=== PATIENT | male | born 1975 | race Caucasian/White ===

== ENCOUNTER 2024-09-28 18:43 | Emergency (ER) | payer OTHER, SELFPAY ==
--- OUTSIDE RECORDS SUMMARY | 2024-09-28 18:45 | XMS_ITS | Clinical Summary ---
Author Organization [facility] Address [address] [address] Phone Care Team Providers Care Glass Forming Engineer Name Role Phone Choice, No Pcp-Patient Primary Care Provider Kimber vailable Allergies Active Allergy Reactions Criticality Noted Date Comments Oxycodone-Acetaminophen Hives 06/27/2018 Trazodone Other Low 08/13/2023 Priapism Medications No known medications Active Problems No known active problems Encounters Date Type Department Care Team Description 07/08/2024 5:30 PM DIRECTOR OF MARKETING [employer] Ancillary Procedure [facility] [address] [facility] [address] [place] [id number] 07/08/2024 3:42 PM DIRECTOR OF MARKETING [employer] - 07/08/2024 8:54 PM DIRECTOR OF MARKETING [employer] Emergency [facility] [address] [place] [address] Carol Ann Lei, [place] Multiple subsegmental pulmonary emboli without acute cor pulmonale (HCC) (Primary Dx); SOB (shortness of breath); Palpitation Discharge Disposition: Home and/or Self Care 07/08/2024 Travel from Last 3 Months Social History Tobacco Use Types Packs/Day Years Used Date Smoking Tobacco: Never Assessed Overall Financial Resource Strain (CARDIA) Answe r Date Recorded How hard is it for you to pa y for the very basics like food, housing, medical care, and heating? Very hard 08/13/2023 Hunger Vital Sign Answer Date Recorded Within the past 12 months, y ou worried that your food would run out before you got the money to buy more. Often true 08/13/20 23 Within the past 12 months, t he food you bought just didn't last and you didn't have money to get more. Often true 08/13/2023 PRAPARE - Transportation Answer Date Re corded In the past 12 months, has l ack of transportation kept you from medical appointments or from getting medications? No 07/18 In the past 12 months, has l ack of transportation kept you from meetings, work, or from getting things needed for daily living? No 08/13/2023 IP Housing Domain Answer Date Record ed Retired - What is your dominguez g situation today? I do not have a steady place to live (I am temporarily staying with others, in a hotel, in a mcc, living outside on the street, on a beach, in a car, abondoned building, bus or train station, or in a park) 08/13/2023 IP Custom Utilities ([employer]) Answer Date Recorded How hard is it for you to pa y for the very basics like food, housing, medical care, and heating? 1 08/13/2023 IP Custom IPV Answer Date Recorded Do you feel UNSAFE in any of your personal relationships with your family members or any other acquaintances? No 2023 Sex and Gender Information Value Date Recorded Sex Assigned at Not on file Legal Sex Male 1:16 PM DIRECTOR OF MARK[employer]ING [employer] Gender Identity Not on file Sexual Orientation Not on file Last Filed Vital Signs Vital Sign Reading Time Taken Comments Blood Pressure 139/102 07/08/2024 8:00 PM DIRECTOR OF [employer] Pulse 57 07/08/2024 8:15 PM DIRECTOR OF [employer] Temperature 36.5 C (97.7 F) 07/08/2024 3:39 PM DIRECTOR OF MARK[employer]ING [employer] Respiratory Rate 18 07/08/2024 8:00 PM DIRECTOR OF MARK[employer]ING [employer] Oxygen Saturation 95% 07/08/2024 8:15 PM DIRECTOR OF MARK[employer]ING [employer] Inhaled Oxygen Concentration - - Weight 99.8 kg (220 lb) 07/08/2024 3:39 PM DIRECTOR OF MARK[employer]ING [employer] Height 180.3 cm (5' 11) 07/08/2024 3:39 PM DIRECTOR OF [employer] Body Mass Index 30.68 07/08/2024 3:39 PM DIRECTOR OF MARK[employer]ING [employer] Plan of Treatment Health Maintenance Due Date Last Done Comments CT Colonography 1976 Cologuard 1976 Colonoscopy 1976 Colorectal Cancer Screening 1976 FIT/FOBT 1976 Sigmoidoscopy 1976 Hepatitis B Vaccine (Standin g Order) (1 of 3 - 19+ 3-dose series) 1995 PERTUSSIS (Standing Order) 1995 TETANUS (Standing Order) 1995 COVID-19 Vaccine (2023-2 5 season) 2024 Influenza Vaccine Seasonal (Standing Order) (#1) 2024 HPV Vaccine (Standing Order) Aged Out No longer eligible based on patient's age to complete this topic Pneumococcal/PCV20 Vaccine: Pediatrics (2-5 yrs) and At-Risk Patients (6-49 yrs) (Standing Order) Aged Out No longer eligible b ased on patient's age to complete this topic Procedures Procedure Name Priority Date/Time Associated Diagnosis Comments CT ANGIO CHEST PE STAT 07/08/2024 6:1 5 PM DIRECTOR OF MARK[employer]ING [employer] NTPRO BNP Add on 07/08/2024 3:51 PM DIRECTOR OF [employer] TROPONIN I ED 07/08/2024 3:51 PM DIRECTOR OF MARK[employer]ING [employer] D-DIMER Add on 07/08/2024 3:51 PM DIRECTOR OF [employer] BASIC METABOLIC PANEL Add on 07/08/2024 3:51 PM DIRECTOR OF [employer] HEMOGRAM/DIFF Add on 07/08/2024 3:51 PM DIRECTOR OF [employer] HOLD MUELLER TUBE ED 07/08/2024 3:51 PM DIRECTOR OF MARK[employer]ING [employer] HOLD NA CITRATE ED 07/08/2024 3:51 PM DIRECTOR OF MARK[employer]ING [employer] HOLD LI HEPARIN ED 07/08/2024 3:51 PM DIRECTOR OF MARK[employer]ING [employer] HOLD EDTA ED 07/08/2024 3:51 PM DIRECTOR OF MARK[employer]ING [employer] RAINBOW DRAW ED 07/08/2024 3:51 PM DIRECTOR OF [employer] EKG 12-LEAD STAT 07/08/2024 3:44 PM DIRECTOR OF MARK[employer]ING [employer] from Last 3 Months Results * CT ANGIO CHEST PE (07/08/2024 6:15 PM DIRECTOR OF MARK[employer]ING [employer]) Anatomical Region Laterality Modality Chest, Lung Computed Tomogra phy 07/08/2024 6:18 PM DIRECTOR OF [employer]ING [employer] Narrative 07/08/2024 7:26 PM DIRECTOR OF MARK[employer]ING [employer] For Patients: As a result of the Cures Act, medical imaging exams and procedure reports are released immediately into your electronic medical record. You may view this report before your referring provider. If you have questions, please contact your health care provider. Indication: Suspect PE, elevated d dimer Technique: CTA chest, pulmonary embolism protocol, utilizing 100 mL Omnipaque 350 Comparison: CTA chest on April 19, 2024 Findings: No thyroid nodules. No pathologically enlarged lymph nodes throughout the thorax. The heart is normal in size. No CT evidence of right heart strain. No pericardial effusion. Thoracic aorta and pulmonary artery are normal in caliber. Pulmonary emboli in the distal right main pulmonary artery with extension into the segmental and subsegmental arteries of the right upper, middle, and lower lobes. Pulmonary emboli in the segmental and subsegmental pulmonary arteries of the left lower lobe. Resolution of previously visualized dense consolidative opacity seen in the left upper lobe with some regions of residual scarring/atelectasis. No new focal airspace consolidation. Resolution of previously visualized small left-sided pleural effusion. No pneumothorax. Trace bibasilar and dependent atelectatic changes. There are few solid sub 6 millimeter pulmonary nodules bilaterally, unchanged compared to prior exam. The airways are clear. The visualized upper abdomen is unremarkable The soft tissues and osseous structures are unremarkable. Impression: 1. Bilateral pulmonary emboli with clot burden slightly increased compared to prior examination, but no CT evidence of right heart strain. 2. Resolution of previously visualized dense consolidative opacity seen in the left upper lobe and resolution of previously visualized left pleural effusion. Findings were discussed with Dr. Lei at 7:25 p.m. on 07/08/2024. Please note that all CT scans at this facility use dose modulation, iterative reconstruction, and/or weight-based dosing when appropriate to reduce radiation dose to as low as reasonably achievable. Dictated by Reed Cormier MD @ 07/08/2024 7:26:12 PM Electronically Signed Procedure Note Reed Corimer MD - 07/08/2024 For Patients: As a result of the Cures Act, medical imagingexams and procedure reports are released immediately into your electronicmedical record. You may view this report before your referring provider. If youhave questions, please contact your health care provider. Indication: Suspect PE, elevated d dimer Technique: CTA chest, pulmonary embolism protocol, utilizing 100 mL Omnipaque 350 Comparison: CTA chest on April 19, 2024 Findings: No thyroid nodules. No pathologically enlarged lymph nodes throughoutthe thorax. The heart is normal in size. No CT evidence of right heart strain. No pericardial effusion. Thoracic aorta and pulmonary artery are normal incaliber. Pulmonary emboli in the distal right main pulmonary artery with extensioninto the segmental and subsegmental arteries of the right upper, middle, andlower lobes. Pulmonary emboli in the segmental and subsegmental pulmonaryarteries of the left lower lobe. Resolution of previously visualized dense consolidative opacity seen inthe left upper lobe with some regions of residual scarring/atelectasis. No newfocal airspace consolidation. Resolution of previously visualized smallleft-sided pleural effusion. No pneumothorax. Trace bibasilar and dependentatelectatic changes. There are few solid sub 6 millimeter pulmonary nodulesbilaterally, unchanged compared to prior exam. The airways are clear. The visualized upper abdomen is unremarkable The soft tissues and osseous structures are unremarkable. Impression: 1. Bilateral pulmonary emboli with clot burden slightly increased comparedto prior examination, but no CT evidence of right heart strain. 2. Resolution of previously visualized dense consolidative opacity seen inthe left upper lobe and resolution of previously visualized left pleuraleffusion. Findings were discussed with Dr. Lei at 7:25 p.m. on 07/08/2024. Please note that all CT scans at this facility use dose modulation,iterative reconstruction, and/or weight-based dosing when appropriate to reduceradiation dose to as low as reasonably achievable. Dictated by Reed Cormier MD @ 07/08/2024 7:26:12 PM Electronically Signed us Carol Ann Lei PA-C EC CT ORDERABLES Final Res ult * HOLD MUELLER TUBE (07/08/2024 3:51 PM DIRECTOR OF MARK[employer]ING [employer]) Blood BLOOD SPECIMEN / Unknown Venipuncture / Unknown 07/08/2024 3:51 PM DIRECTOR OF MARK[employer]ING [employer] 07/08/2024 3:57 PM DIRECTOR OF MARK[employer]ING [employer] us Danica Mckee MD EC CHEMISTRY ORDERABLES Fin al Result Performing Organization Address [facility] Phone Number [facility] [address] [place] [address] * NTPRO BNP (07/08/2024 3:51 PM DIRECTOR OF MARKETING [employer]) NT-PRO BNP 65 <125 pg/mL 07/08/2024 6:47 PM DIRECTOR OF MARK[employer]ING [employer] [facility] Blood BLOOD SPECIMEN / Unknown Venipuncture / Unknown 07/08/2024 3:51 PM DIRECTOR OF [employer] 07/08/2024 3:57 PM DIRECTOR OF MARK[employer]ING [employer] Narrative [facility] - 07/08/2024 6:47 PM DIRECTOR OF MARKETING [employer] The decision thresholds: <75 years- 125 pg/mL >75 years- 450 pg/mL Clinical correlations for the NYHA functional classes at the 95th percentile: NYHA I: 3410 NYHA II: 6567 NYHA III: 48424 us Carol Ann Lei PA-C EC LAB SEND OUT ORDERABLES Final Result Performing Organization Address [facility] Phone Number [facility] [address] [place] [address] * HOLD LI HEPARIN (07/08/2024 3:51 PM DIRECTOR OF MARK[employer]ING [employer]) Blood BLOOD SPECIMEN / Unknown Venipuncture / Unknown 07/08/2024 3:51 PM DIRECTOR OF MARK[employer]ING [employer] 07/08/2024 3:57 PM DIRECTOR OF MARK[employer]ING [employer] us Danica Mckee MD EC CHEMISTRY ORDERABLES Fin al Result Performing Organization Address [facility] Phone Number [facility] [address] [place] [address] * HOLD NA CITRATE (07/08/2024 3:51 PM DIRECTOR OF MARKETING [employer]) Blood BLOOD SPECIMEN / Unknown Venipuncture / Unknown 07/08/2024 3:51 PM DIRECTOR OF MARK[employer]ING [employer] 07/08/2024 3:57 PM DIRECTOR OF MARK[employer]ING [employer] us Danica Mckee MD EC HEMATOLOGY ORDERABLES Fi nal Result [facility] [address] [place] [address], [facility] [phone] * HOLD PURPLE TUBE (07/08/2024 3:51 PM DIRECTOR OF MARK[employer]ING [employer]) Blood BLOOD SPECIMEN / Unknown Venipuncture / Unknown 07/08/2024 3:51 PM DIRECTOR OF MARK[employer] 07/08/2024 3:57 PM DIRECTOR OF MARK[employer] Danica Mckee MD EC HEMATOLOGY ORDERABLES Fi nal Result [facility] [address] [place] [id number] [phone] * BASIC METABOLIC PANEL (07/08/2024 3:51 PM DIRECTOR OF MARK[employer]) Sodium 139 135 - 144 mmol/L 07/08/2024 4:34 PM DIRECTOR OF MARK[employer] [facility] Potassium 4.3 3.4 - 5.1 mmol/L 07/08/2024 4:34 PM DIRECTOR OF MARK[employer] [facility] Chloride 102 98 - 107 mmol/L 07/08/2024 4:34 PM DIRECTOR OF MARK[employer] [facility] Carbon Dioxide 25 22 - 30 mmol/L 07/08/2024 4:34 PM DIRECTOR OF MARK[employer] [facility] Calcium 10.3 8.6 - 10.3 mg/dL 07/08/2024 4:34 PM DIRECTOR OF MARK[employer] [facility] Glucose 80 74 - 100 mg/dL 07/08/2024 4:34 PM DIRECTOR OF MARK[employer] [facility] Blood Urea nitrogen 13 9 - 20 mg/dL 07/08/2024 4:34 PM DIRECTOR OF MARK[employer] [facility] Creatinine 0.84 0.66 - 1.25 mg/dL 07/08/2024 4:34 PM DIRECTOR OF MARK[employer] [facility] Anion Gap 12 5 - 15 mmol/L 07/08/2024 4:34 PM DIRECTOR OF MARK[employer] [facility] Glomerular Filtration Rate >60 >60 mL/min/1.7 3 m*2 07/08/2024 4:34 PM DIRECTOR OF MARK[employer]ING [employer] [facility] Comment:This calculation use s CKD-EPI 2020 equation; it has not been validated in women. Blood BLOOD SPECIMEN / Unknown Venipuncture / Unknown 07/08/2024 3:51 PM DIRECTOR OF [employer] 07/08/2024 3:57 PM DIRECTOR OF [employer] Carol Ann Lei PA-C EC CHEMISTRY ORDERABLES Fi nal Result Performing Organization Address [facility] Phone Number [facility] [address] [place] [address] * TROPONIN I (07/08/2024 3:51 PM DIRECTOR OF MARK[employer]ING [employer]) [facility] High Sensitivity Troponin I 5.8 0.0 - 76.2 pg/mL 07/08/2024 5:34 PM DIRECTOR OF [employer] [facility] Blood BLOOD SPECIMEN / Unknown Venipuncture / Unknown 07/08/2024 3:51 PM DIRECTOR [employer] 07/08/2024 5:00 PM DIRECTOR OF MARK[employer]ING [employer] Narrative [facility] - 07/08/2024 5:34 PM DIRECTOR OF [employer] The 99th percentile URL (upper reference limit) for High Sensitivity Troponin I is as follows: Female: 51.4 pg/mL Male: 76.2 pg/mL Gender Neutral: 60.4 pg/mL Carol Ann Lei PA-C EC CHEMISTRY ORDERABLES Fi nal Result Performing Organization Address [facility] Phone Number [facility] [address] [place] [address] * (ABNORMAL) HEMOGRAM/DIFFERENTIAL (07/08/2024 3:51 PM DIRECTOR OF MARK[employer]ING [employer]) [facility] WBC 9.7 4.0 - 11.0 10*3/uL 07/08/2024 4:33 PM DIRECTOR OF MARK[employer]ING [employer] [facility] RBC 5.57 4.40 - 6.00 10*6/uL 07/08/2024 4:33 PM DIRECTOR OF MARK[employer] [facility] HGB 15.3 13.0 - 18.0 g/dl 07/08/2024 4:33 PM DIRECTOR OF MARK[employer]ING [employer] [facility] HCT 47.0 40.0 - 52.0 % 07/08/2024 4:33 PM DIRECTOR OF MARK[employer] [facility] MCV 84.4 80 - 96 fL 07/08/2024 4:33 PM DIRECTOR OF MARK[employer] [facility] MCH 27.5 27.0 - 34.0 pg 07/08/2024 4:33 PM DIRECTOR OF MARK[employer] [facility] MCHC 32.6 32 - 36 g/dl 07/08/2024 4:33 PM DIRECTOR OF MARK[employer] [facility] PLT 305 150 - 420 10*3/uL 07/08/2024 4:33 PM DIRECTOR OF MARK[employer] [facility] Neutrophils Absolute 4.41 2.10 - 7.50 10*3/uL 07/08/2024 4:33 PM DIRECTOR OF MARK[employer] [facility] Lymphocytes Absolute 3.93 0.76 - 4.00 10*3/uL 07/08/2024 4:33 PM DIRECTOR OF MARK[employer] [facility] Monocytes Absolute 0.96(H) 0.00 - 0.90 10*3/uL 07/08/2024 4:33 PM DIRECTOR OF MARK[employer] [facility] Eosinophils Absolute 0.28 0.04 - 0.54 10*3/uL 07/08/2024 4:33 PM DIRECTOR OF MARK[employer] [facility] Basophils Absolute 0.05 0.00 - 0.20 10*3/uL 07/08/2024 4:33 PM DIRECTOR OF MARK[employer] [facility] RDW-SD 52.4(H) 35.1 - 43.9 fL 07/08/2024 4:33 PM DIRECTOR OF [employer] [facility] RDW-CV 16.8(H) 11.6 - 14.4 % 07/08/2024 4:33 PM DIRECTOR OF MARK[employer] [facility] Immature Granulocytes Absolute 0.06 0.00 - 0.10 10*3/uL 07/08/2024 4:33 PM DIRECTOR OF MARK[employer] [facility] Blood BLOOD SPECIMEN / Unknown Venipuncture / Unknown 07/08/2024 3:51 PM DIRECTOR OF [employer] 07/08/2024 3:57 PM DIRECTOR OF [employer] us Carol Ann Lei PA-C EC HEMATOLOGY ORDERABLES F inal Result [facility] [address] [place] [address] * (ABNORMAL) D-DIMER (07/08/2024 3:51 PM DIRECTOR OF [employer]) D-Dimer 4.30(H) 0.22 - 0.50 mg/L 07/08/2024 4:33 PM DIRECTOR OF MARK[employer]ING [employer] [facility] Blood BLOOD SPECIMEN / Unknown Venipuncture / Unknown 07/08/2024 3:51 PM DIRECTOR OF MARK[employer] 07/08/2024 3:57 PM DIRECTOR OF MARK[employer]ING [employer] Narrative [facility] - 07/08/2024 4:33 PM DIRECTOR OF MARK[employer]ING [employer] Result is mg/L FEU (Fibrinogen Equivalent Units) D-Dimer is elevated in DVT,PE, and DIC, however, D-Dimer in NOT specific for DVT and PE and therefore, cannot be applied as a sole confirmatory marker. D-Dimer should be used as an aide in diagnosis. An [facility] laboratory study showed that the cutoff value of 0.5 mg/L FEU has a 100% negative predictive value us Carol Ann Lei PA-C EC HEMATOLOGY ORDERABLES F inal Result [address] [phone] * EKG 12-LEAD (07/08/2024 3:44 PM DIRECTOR OF MARK[employer]ING [employer]) [facility] Ventricular Rate 82 BPM RMCMUSE Atrial Rate 82 BPM [facility] P-R Interval 152 ms RMCMUSE QRS Duration 104 ms RMCMUSE QT 350 ms RMCMUSE QTc 408 ms RMCMUSE P [place] 39 degrees RMCMUSE R [place] 15 degrees RMCMUSE T [place] 47 degrees RMCMUSE 07/08/2024 3:44 PM DIRECTOR OF [employer] 07/11/2024 2:03 PM DIRECTOR OF [employer] Narrative [facility] - 07/11/2024 2:03 PM DIRECTOR OF [employer] Confirming Manuel Madrid Normal sinus rhythm Normal ECG When compared with ECG of 19-APR-2024 11:11, No significant change was found Procedure Note Santosh Madrid MD - 07/11/2024 Confirming Manuel Madrid Normal sinus rhythm Normal ECG When compared with ECG of 19-APR-2024 11:11, No significant change was found us Danica Mckee MD IP ECG ORDERABLES Final Res ult [facility]CMUSE from Last 3 Months Insurance [facility] Care Teams Glass Forming Engineer Relationship Specialty Start Date End Date Choice, No Pcp-Patient PCP - General 04/19/24
--- OUTSIDE RECORDS SUMMARY | 2024-09-28 18:45 | XMS_ITS | Clinical Summary ---
Author Organization [facility] Address [address] [place] [address] Care Team Providers Care Programmer Or Analyst Name Role Phone No Primary/Referring, Phy Primary Care Provider Unavailable Source Comments You are receiving this document as you are listed as the primary care provider,follow-up provider, or the patient has been referred to you for consultation.This is in compliance with the Medicare andMedicaid EHR Incentive Program,which states Providers who transition their patient to another setting of careor provider of care or refers their patient to another provider of care shouldprovide summary care record for each transition of care or referral. [place] Allergies Active Allergy Reactions Criticality Noted Date Comments Oxycodone-Acetaminophen 10/18/2008 PN: LW Reaction: Vomiting Trazodone Unknown 08/14/2023 Medications * This document contains information received from the source organization and may not represent a complete record from that organization. No known medications Active Problems Problem Noted Date Diagnosed Date Major depressive disorder, r ecurrent severe without psychotic features 08/14/2023 MADELEINE (generalized anxiety disorder) 08/14/2023 Methamphetamine use disorder, severe, dependence 08/14/2023 Nicotine dependence, other tobacco product, with withdrawal 08/14/2023 Social History Tobacco Use Types Packs/Day Years Used Date Smoking Tobacco: Every Day Cigarettes 1 30 Smokeless Tobacco: Never Tobacco Cessation:Ready to Q uit: Not Asked; Counseling Given: Not Answered Hunger Vital Sign Answer Date Recorded Within the past 12 months, y ou worried that your food would run out before you got the money to buy more. Often true 08/14/20 23 Within the past 12 months, t he food you bought just didn't last and you didn't have money to get more. Often true 08/14/2023 Sex and Gender Information Value Date Recorded Sex Assigned at Not on file Legal Sex Male 9:14 PM CDT Gender Identity Not on file Sexual Orientation Not on file Last Filed Vital Signs Vital Sign Reading Time Taken Comments Blood Pressure 134/98 08/22/2023 7:31 AM [employer] Pulse 69 08/22/2023 7:31 AM [employer] Temperature 36.6 C (97.9 F) 08/22/2023 7:31 AM [employer] Respiratory Rate 18 08/22/2023 7:31 AM [employer] Oxygen Saturation 98% 08/22/2023 7:31 AM [employer] Inhaled Oxygen Concentration - - Weight 88.1 kg (194 lb 3.2 oz) 08/21/2023 7:52 A M [employer] Height 180.3 cm (5' 10.98) 08/18/2023 3:[address] Body Mass Index 27.1 08/18/2023 3:21 PM [employer] Plan of Treatment Health Maintenance Due Date Last Done Comments Colon Cancer Screening Plan Due 1976 Hep C Screening (Preventive Services) 1976 Pneumococcal (1 - PCV) 1982 HIV Screening (Preventive Services) 1992 Adult Preventive Visit 1994 DTaP/Tdap/Td (1 - Tdap) 1995 HepB (1) 1995 Cholesterol 2011 COVID-19 Vaccine (1 - 2023-2 5 season) 2024 Influenza (#1) 2024 Zoster/Shingles (1 of 2) 2026 HepA Aged Out No longer eligi ble based on patient's age to complete this topic Hib Aged Out No longer eligi ble based on patient's age to complete this topic IPV (Polio) Aged Out No longer eligi ble based on patient's age to complete this topic MCV4 Aged Out No longer eligi ble based on patient's age to complete this topic Insurance HOMELESS 08/14/2023 [facility] [id number] [address] [place] [id number] HOMELESS 08/14/[address] [id number] [facility] Advance Directives * Full Code (Latest Code Status on File) Date Activated Date Inactivated Comments 08/14/2023 4:34 AM 08/22/2023 10:23 AM Care Teams Programmer Or Analyst Relationship Specialty Start Date End Date No Primary/Referring, Phy PCP - General 08/14/23
[2024-09-28 18:48] VITALS: BP 193/146; PULSE 88; RESP 22; TEMP 36.1; O2SAT 98
--- NOTE | 2024-09-28 18:58 | ED.GENADULT ---
HPI - General Adult General Date Seen: 09/28/24 Chief complaint: Extremity Pain/Injury, Upper Stated complaint: Hurt his hand at work - R Time Seen by Provider: 09/28/24 18:47 History of Present Illness HPI narrative: Pleasant 49-year-old male presenting to the ER today with a work related injury to his right hand. 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 Had been moving boxes for over an hour when he started to have pain in his Records indicate he was seen in the urgent care 07/29/2024 for pain in his right hand. Pain occurred while he was at work bed day after he struck the back of his hand on a forklift. X-ray was negative for fracture. He was put on Keflex for possible infection. Records also indicate that he was on Eliquis for history of PEs in the past. Patient is able to tell me that he has been hospitalized several times over the past year for pneumonia and apparently had blood clots in his lungs found on a CT scan after his hospitalization. He has been on Eliquis. The he also has all long history of carpal tunnel affecting his wrists. 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 He stopped working construction and got better so he never did have surgery. 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 Patient says that he recalls being in the urgent care a month or 2 ago because of significant pain and swelling in his right hand (actually worse than it is today). He went to the doctor and had lab tests and was put on antibiotics. He says it got better after for 5 days. Because it got better he never did follow up with Orthopedics. He was doing a lot a work today at the post office lifting some bins and using his hands. After about an hour he started 6. Conn pain in the wrist and right hand. He says most of his pain is actually on the ulnar border of the wrist and radiates from there upper forearm all the way to his elbow and sometimes all the way to his shoulder. He has been trying to put pressure on the ulnar border of his wrist because when he does that it hurts last. He also feels like his hand hurts less if he keeps it hanging down so he has been keeping a dangle for a couple of hours. He has developed increasing swelling in the hand this afternoon as well. He and I agree there is also some redness there. He has not had any fever. He has no known blunt trauma or injury. No fall. He has not had any swelling or redness more proximally in the arm. He does have a history of pulmonary emboli which she says were triggered after he was in the hospital for pneumonia. He has never had a DVT in his upper extremity. Related Data Home Medications ?Medication ?Instructions ?Recorded ?Confirmed apixaban 5 mg tablet (Eliquis) mg PO 07/29/24 08/29/24 Previous Rx's ?Medication ?Instructions ?Recorded cephalexin 500 mg capsule 500 mg PO QID #28 caps 09/28/24 Allergies Allergy/AdvReac Type Severity Reaction Status Date / Time acetaminophen (From Percocet) Allergy Intermediate hives Verified 08/29/24 14:58 oxycodone (From Percocet) Allergy Intermediate hives Verified 08/29/24 14:58 Exam Narrative: Exam Narrative: Constitutional: Appears well-developed and well-nourished. Alert. . As I enter the room he is sitting up in his bedside chair leaning over with his head on the bedside table. He had his right arm hanging dependent between his legs. He is resting his head on the table and will look up at me. He is talking rapidly, but is not able to give a cogent history about when his arm started hurting today or exactly which part of his on his hurting. It is clear that he is uncomfortable. We discussed ordering pain meds for him, but he was somewhat agitated by that. Ultimately I was able to determine that he has an intolerance to oxycodone but has had other pain meds in the past without reaction. He agreed to do a shot of Dilaudid. Speech is somewhat pressured, unclear if he is anxious, or simply acting this way due to pain.. Upon recheck after Dilaudid, he is able to sit up. He is icing his volar wrist. He says it is feeling somewhat better now. HENT: Head: Atraumatic. Nose: Nose normal. Mouth/Throat: Oral mucosa is clear and moist. no trismus. Eyes: Conjunctivae normal. EOM normal. Pupils equal, round, and reactive to light. No scleral icterus. Neck: Normal range of motion. Neck supple. No tracheal deviation present. No visible JVD, but he is sitting up. Cardiovascular: Normal rate, regular rhythm. No gallop. No friction rub. No murmur heard. Symmetric radial artery pulses . Normal capillary refill in the distal fingers of the right hand. Not able to complete Isaac's test due to discomfort. Pulmonary/Chest: Effort normal. No stridor. No respiratory distress. Musculoskeletal: RUE: Clavicle normal. Shoulder and deltoid nontender. No bony deformity. Biceps and triceps nontender. Humeral shaft nontender. Normal brachial pulse. No deformity of the elbow. He is able to fully extend and flex to about 90?. He is tender over the medial epicondyle and the canal containing the ulnar nerve on the medial elbow. When I palpate there he does have an increase in pain and numbness in his hand. Volar and dorsal forearm without swelling or tenderness. Pronation/supination limited by wrist and hand pain. The patient has swelling on the dorsal and volar wrist. He is very tender diffusely on the wrist without any point tenderness or deformity. Seems to be most tender on the ulnar border. He is concerned that he has something in his carpal tunnel (but does not have pain specifically localizing to the volar wrist or hand). Inspection of the hand reveals significant edema on the dorsum of the hand spreading to all 5 fingers. Perhaps slightly red but not obviously erythematous. No definite warmth to palpation. No definite fluctuance. I do not see any abrasions or open wounds to suggest a fight bite . Range of motion in the wrist is limited by pain. He has limited flexion extension of his fingers because it makes his wrist pain flare up. LUE: Normal range of motion. No tenderness. No deformity RLE: Normal range of motion. No edema. No tenderness. No deformity LLE: Normal range of motion. No edema. No tenderness. No deformity Lymph: No ascending lymphangitis.. Neurological: Alert and oriented to person, place, and time. Normal strength. CN II-VII intact. No sensory deficit. GCS eye subscore is 4. GCS verbal subscore is 5. GCS motor subscore is 6. Normal coordination Patient complaining of subjective paresthesias in the right median and ulnar nerve distributions but normal sensation in the radial nerve. Skin: Skin is warm and dry. No rash noted. No pallor. Normal capillary refill. Psychiatric: Normal mood. Anxious. Const: Vital Signs, click to edit/add: Vital Signs - 24 hr 09/28/24 18:48 Temperature 97 F L Pulse Rate [Pulse Oximeter] 88 Respiratory Rate 22 Blood Pressure [Le ft Upper Arm] 193/146 H Pulse Oximetry 98 Oxygen Delivery Me thod Room Air Course Vital Signs Vital signs: Initial Vital Signs Temperature 97 F L 09/28/24 18:48 Temperature Source Temporal Artery Scan 09/28/24 18:48 Pulse Rate 88 09/28/24 18:48 Respiratory Rate 22 09/28/24 18:48 Blood Pressure 193/146 H 09/28/24 18:48 Blood Pressure Mean 161 H 09/28/24 18:48 Blood Pressure Position Sitting 09/28/24 18:48 Pulse Oximetry 98 09/28/24 18:48 Oxygen Delivery Method Room Air 09/28/24 18:48 Vital Signs Temperature 97 F L 09/28/24 18:48 Pulse Rate 88 09/28/24 18:48 Respiratory Rate 22 09/28/24 18:48 Blood Pressure 193/146 H 09/28/24 18:48 Pulse Oximetry 98 09/28/24 18:48 Oxygen Delivery Method Room Air 09/28/24 18:48 Temperature 97 F L 09/28/24 18:48 Pulse Rate 88 09/28/24 18:48 Respiratory Rate 22 09/28/24 18:48 Blood Pressure 193/146 H 09/28/24 18:48 Pulse Oximetry 98 09/28/24 18:48 Oxygen Delivery Method Room Air 09/28/24 18:48 Medications Administered Medications: Generic Name Dose Route Start Last Admin Trade Name Freq PRN Reason Stop Dose Admin Cephalexin HCl 500 mg 09/28/24 20:19 09/28/24 20:25 Cephalexin 500 Mg Capsule PO 09/28/24 20:20 500 mg ONCE ONE Administration Discontinued Medications Generic Name Dose Route Start Last Admin Trade Name Freq PRN Reason Stop Dose Admin Hydromorphone HCl 1 mg 09/28/24 19:04 09/28/24 19:14 Hydromorphone 0.5 Mg/0.5 Ml Inj IM 09/28/24 19:05 1 mg ONCE ONE Administration Ondansetron HCl 4 mg 09/28/24 19:04 09/28/24 19:15 Ondansetron Odt 4 Mg Tab PO 09/28/24 19:05 4 mg ONCE ONE Administration Medical Decision Making MDM Narrative Medical decision making narrative: 49-year-old male presenting to the ER today with acute onset of right wrist pain had and swelling as well as swelling to the dorsum of his right hand. He says he he has a long history of wrist tendon problems and carpal tunnel and he feels that he made those problems flare up while lifting boxes and bins at work this afternoon. My differential is much broader. Consider fracture given the amount of swelling and pain. However he denies any recent fall or injury. Or and I discussed x-rays and decided to hold off, given low likelihood for fracture. With the amount of swelling and pain he is having on concerned about wrist joint pathology such as gout or septic arthritis. He is refusing any lab draw to check inflammatory markers and refusing any needles to try to do arthrocentesis in the wrist. Also consider cellulitis in the hand. Again, he is declining lab draws to check inflammatory markers. He has no history of trauma to the wrist or cut to suggest a fight bite.Her hand is swollen but I do not detect any definite fluctuance on palpation. He has no fever. At this point, I think we are obligated to start him on antibiotics, even though we do not have a complete workup to look for infection . He is declining needles or IV. First dose of cephalexin given here in the ER tonight. He apparently did have a similar episode of swelling and pain in his hand 2 months ago in July that came and went after about for 5 days. He had been placed on antibiotics at that time as well. He also has a history of pulmonary emboli and is currently on Eliquis. Consider an acute DVT of the right upper extremity. However given onset of the pain and swelling at work this afternoon, that seems less likely. Patient does not want an ultrasound of his arm today. Patient believes he either has carpal tunnel syndrome (which I do not think would present with this degree of pain and swelling in the wrist and hand) or something wrong with his flexor tendons. He is concerned that he tore them at work today. He would like to have an MRI of his wrist and hand checked the tendons. We discussed that this is, unfortunately, not available here in the ER. He verbalizes understanding. He would be willing to accept a referral to Orthopedics for further workup. In terms of outpatient management he says he already has splints at home. He is requesting an Rajiv wrap to help get compression on his hand and wrist. This is provided. He will ice and elevate. I discussed with my patient my concern for him. I am concerned there is some more serious pathology in his wrist and hand occurring here rather than just tendinitis. I am concerned that he may have underlying pathology such as septic arthritis, infection, gout, or even compartment syndrome. Precautions to return to the ER with worsening pain, increasing swelling, new numbness, new fever, or any other concerns. Discharge Plan Discharge Clinical Impression: Pain and swelling of right wrist, Hand swelling Patient Disposition: Home, Self-Care Condition: Stable Instructions: Wrist Injury (ED) Additional Instructions: As we discussed, the cause for the pain and swelling in your wrist in hand is not clear at this time. We have decided to hold off on x-rays because you have no known injury. I am concerned that you may have a serious problem in your wrist or hand such as an infection or a blood clot. Please start on the antibiotics tonight and continue them tomorrow. Try to keep your hand elevated at the level of your heart. Use an ice pack for 20 minutes every 3-4 hours to help reduce swelling. Treat the pain with Tylenol. Avoid ibuprofen. Use her splint to help you your wrist immobilized. If you are getting worse, come back to the ER or see the ortho clinic or your doctor right away. Please monitor the area carefully. If you have worsening pain, or increasing swelling, spreading swelling, fever or chills, or any problems, please come back to the emergency department right away. It is very important for you to follow-up with the orthopedic clinic for recheck the within 1-2 days. Call tomorrow to schedule an ER follow-up appointment with the [facility] ortho clinic. [phone]. Prescriptions: New cephalexin 500 mg capsule 500 mg PO QID Qty: 28 0RF No Action Eliquis 5 mg tablet PO Follow Up/Referrals: Provider,Not a Local [Primary Care Provider] - Stand Alone Forms: [employer] Info Instructions
[2024-09-28] MEDS: HYDROmorphone 0.5 mg/0.5 ml inj 1 MG IM (19:14)
[2024-09-28] MEDS: ONDANSETRON ODT 4 MG TAB PO (19:15)
--- OUTSIDE RECORDS SUMMARY | 2024-09-28 19:50 | XMS_ITS | Clinical Summary ---
Author Organization [facility] Address [address] [address] Phone Care Team Providers Care Senior Network Security Engineer Name Role Phone Choice, No Pcp-Patient Primary Care Provider Kimber vailable Allergies Active Allergy Reactions Criticality Noted Date Comments Oxycodone-Acetaminophen Hives 06/27/2018 Trazodone Other Low 08/13/2023 Priapism Medications No known medications Active Problems No known active problems Encounters Date Type Department Care Team Description 07/08/2024 5:30 PM QUALITY CONTROL TECH Ancillary Procedure [facility] [address] [facility] [address] [place] [id number] 07/08/2024 3:42 PM QUALITY CONTROL TECH - 07/08/2024 8:54 PM QUALITY CONTROL TECH Emergency [facility] [address] [place] [id number] Carol Ann Lei, [place] Multiple [...] on file Legal Sex Male 1:16 PM QUALITY CONTROL TECH Gender Identity Not on file Sexual Orientation Not on file Last Filed Vital Signs Vital Sign Reading Time Taken Comments Blood Pressure 139/102 07/08/2024 8:00 PM QUALITY CONTROL TECH Pulse 57 07/08/2024 8:15 PM QUALITY CONTROL TECH Temperature 36.5 C (97.7 F) 07/08/2024 3:39 PM QUALITY CONTROL TECH Respiratory Rate 18 07/08/2024 8:00 PM QUALITY CONTROL TECH Oxygen Saturation 95% 07/08/2024 8:15 PM QUALITY CONTROL TECH Inhaled Oxygen Concentration - - Weight 99.8 kg (220 lb) 07/08/2024 3:39 PM QUALITY CONTROL TECH Height 180.3 cm (5' 11) 07/08/2024 3:39 PM QUALITY CONTROL TECH Body Mass Index 30.68 07/08/2024 3:39 PM QUALITY CONTROL TECH Plan of Treatment Health Maintenance Due Date [...] CHEST PE STAT 07/08/2024 6:1 5 PM QUALITY CONTROL TECH NTPRO BNP Add on 07/08/2024 3:51 PM QUALITY CONTROL TECH TROPONIN I ED 07/08/2024 3:51 PM QUALITY CONTROL TECH D-DIMER Add on 07/08/2024 3:51 PM QUALITY CONTROL TECH BASIC METABOLIC PANEL Add on 07/08/2024 3:51 PM QUALITY CONTROL TECH HEMOGRAM/DIFF Add on 07/08/2024 3:51 PM QUALITY CONTROL TECH HOLD MUELLER TUBE ED 07/08/2024 3:51 PM QUALITY CONTROL TECH HOLD NA CITRATE ED 07/08/2024 3:51 PM QUALITY CONTROL TECH HOLD LI HEPARIN ED 07/08/2024 3:51 PM QUALITY CONTROL TECH HOLD EDTA ED 07/08/2024 3:51 PM QUALITY CONTROL TECH RAINBOW DRAW ED 07/08/2024 3:51 PM QUALITY CONTROL TECH EKG 12-LEAD STAT 07/08/2024 3:44 PM QUALITY CONTROL TECH from Last 3 Months Results * CT ANGIO CHEST PE (07/08/2024 6:15 PM QUALITY CONTROL TECH) Anatomical Region Laterality Modality Chest, Lung Computed Tomogra phy 07/08/2024 6:18 PM QUALITY CONTROL TECH Narrative 07/08/2024 7:26 PM QUALITY CONTROL TECH For Patients: As a result of the [...] 7:26:12 PM Electronically Signed Procedure Note Reed Cormier MD - 07/08/2024 For Patients: As a [...] * HOLD MUELLER TUBE (07/08/2024 3:51 PM QUALITY CONTROL TECH) Blood BLOOD SPECIMEN / Unknown Venipuncture / Unknown 07/08/2024 3:51 PM QUALITY CONTROL TECH 07/08/2024 3:57 PM QUALITY CONTROL TECH us Danica Mckee MD EC CHEMISTRY ORDERABLES Fin al Result Performing Organization Address [facility] Phone Number [facility] [address] [place] [address] * NTPRO BNP (07/08/2024 3:51 PM QUALITY CONTROL TECH) NT-PRO BNP 65 <125 pg/mL 07/08/2024 6:47 PM QUALITY CONTROL TECH [facility] Blood BLOOD SPECIMEN / Unknown Venipuncture / Unknown 07/08/2024 3:51 PM QUALITY CONTROL TECH 07/08/2024 3:57 PM QUALITY CONTROL TECH Narrative [facility] - 07/08/2024 6:47 PM QUALITY CONTROL TECH The decision thresholds: <75 years- 125 pg/mL >75 years- 450 pg/mL Clinical correlations for the NYHA functional classes at the 95th percentile: NYHA I: 3410 NYHA II: 6567 NYHA III: 31706 us Carol Ann Lei PA-C EC LAB SEND OUT ORDERABLES Final Result Performing Organization Address [facility] Phone Number [facility] [address] [place] [address] * HOLD LI HEPARIN (07/08/2024 3:51 PM QUALITY CONTROL TECH) Blood BLOOD SPECIMEN / Unknown Venipuncture / Unknown 07/08/2024 3:51 PM QUALITY CONTROL TECH 07/08/2024 3:57 PM QUALITY CONTROL TECH us Danica Mckee MD EC CHEMISTRY ORDERABLES Fin al Result Performing Organization Address [facility] Phone Number [facility] [address] [place] [address] * HOLD NA CITRATE (07/08/2024 3:51 PM QUALITY CONTROL TECH) Blood BLOOD SPECIMEN / Unknown Venipuncture / Unknown 07/08/2024 3:51 PM QUALITY CONTROL TECH 07/08/2024 3:57 PM QUALITY CONTROL TECH us Danica Mkcee MD EC HEMATOLOGY ORDERABLES Fi nal Result [facility] [address] [place] [address], [facility] [phone] * HOLD PURPLE TUBE (07/08/2024 3:51 PM QUALITY CONTROL TECH) Blood BLOOD SPECIMEN / Unknown Venipuncture / Unknown 07/08/2024 3:51 PM QUALITY CONTROL TECH 07/08/2024 3:57 PM QUALITY CONTROL TECH Danica Mckee MD EC HEMATOLOGY ORDERABLES Fi nal Result [facility] [address] [place] [id number] [phone] * BASIC METABOLIC PANEL (07/08/2024 3:51 PM QUALITY CONTROL TECH) Sodium 139 135 - 144 mmol/L 07/08/2024 4:34 PM QUALITY CONTROL TECH [facility] Potassium 4.3 3.4 - 5.1 mmol/L 07/08/2024 4:34 PM QUALITY CONTROL TECH [facility] Chloride 102 98 - 107 mmol/L 07/08/2024 4:34 PM QUALITY CONTROL TECH [facility] Carbon Dioxide 25 22 - 30 mmol/L 07/08/2024 4:34 PM QUALITY CONTROL TECH [facility] Calcium 10.3 8.6 - 10.3 mg/dL 07/08/2024 4:34 PM QUALITY CONTROL TECH [facility] Glucose 80 74 - 100 mg/dL 07/08/2024 4:34 PM QUALITY CONTROL TECH [facility] Blood Urea nitrogen 13 9 - 20 mg/dL 07/08/2024 4:34 PM QUALITY CONTROL TECH [facility] Creatinine 0.84 0.66 - 1.25 mg/dL 07/08/2024 4:34 PM QUALITY CONTROL TECH [facility] Anion Gap 12 5 - 15 mmol/L 07/08/2024 4:34 PM QUALITY CONTROL TECH [facility] Glomerular Filtration Rate >60 >60 mL/min/1.7 3 m*2 07/08/2024 4:34 PM QUALITY CONTROL TECH [facility] Comment:This calculation use s CKD-EPI 2020 equation; it has not been validated in women. Blood BLOOD SPECIMEN / Unknown Venipuncture / Unknown 07/08/2024 3:51 PM QUALITY CONTROL TECH 07/08/2024 3:57 PM QUALITY CONTROL TECH Carol Ann Lei PA-C EC CHEMISTRY ORDERABLES Fi nal Result Performing Organization Address [facility] Phone Number [facility] [address] [place] [address] * TROPONIN I (07/08/2024 3:51 PM QUALITY CONTROL TECH) [facility] High Sensitivity Troponin I 5.8 0.0 - 76.2 pg/mL 07/08/2024 5:34 PM QUALITY CONTROL TECH [facility] Blood BLOOD SPECIMEN / Unknown Venipuncture / Unknown 07/08/2024 3:51 PM QUALITY CONTROL TECH 07/08/2024 5:00 PM QUALITY CONTROL TECH Narrative [facility] - 07/08/2024 5:34 PM QUALITY CONTROL TECH The 99th percentile URL (upper reference limit) for High Sensitivity Troponin I is as follows: Female: 51.4 pg/mL Male: 76.2 pg/mL Gender Neutral: 60.4 pg/mL Carol Ann Lei PA-C EC CHEMISTRY ORDERABLES Fi nal Result Performing Organization Address [facility] Phone Number [facility] [address] [place] [address] * (ABNORMAL) HEMOGRAM/DIFFERENTIAL (07/08/2024 3:51 PM QUALITY CONTROL TECH) [facility] WBC 9.7 4.0 - 11.0 10*3/uL 07/08/2024 4:33 PM QUALITY CONTROL TECH [facility] RBC 5.57 4.40 - 6.00 10*6/uL 07/08/2024 4:33 PM QUALITY CONTROL TECH [facility] HGB 15.3 13.0 - 18.0 g/dl 07/08/2024 4:33 PM QUALITY CONTROL TECH [facility] HCT 47.0 40.0 - 52.0 % 07/08/2024 4:33 PM QUALITY CONTROL TECH [facility] MCV 84.4 80 - 96 fL 07/08/2024 4:33 PM QUALITY CONTROL TECH [facility] MCH 27.5 27.0 - 34.0 pg 07/08/2024 4:33 PM QUALITY CONTROL TECH [facility] MCHC 32.6 32 - 36 g/dl 07/08/2024 4:33 PM QUALITY CONTROL TECH [facility] PLT 305 150 - 420 10*3/uL 07/08/2024 4:33 PM QUALITY CONTROL TECH [facility] Neutrophils Absolute 4.41 2.10 - 7.50 10*3/uL 07/08/2024 4:33 PM QUALITY CONTROL TECH [facility] Lymphocytes Absolute 3.93 0.76 - 4.00 10*3/uL 07/08/2024 4:33 PM QUALITY CONTROL TECH [facility] Monocytes Absolute 0.96(H) 0.00 - 0.90 10*3/uL 07/08/2024 4:33 PM QUALITY CONTROL TECH [facility] Eosinophils Absolute 0.28 0.04 - 0.54 10*3/uL 07/08/2024 4:33 PM QUALITY CONTROL TECH [facility] Basophils Absolute 0.05 0.00 - 0.20 10*3/uL 07/08/2024 4:33 PM QUALITY CONTROL TECH [facility] RDW-SD 52.4(H) 35.1 - 43.9 fL 07/08/2024 4:33 PM QUALITY CONTROL TECH [facility] RDW-CV 16.8(H) 11.6 - 14.4 % 07/08/2024 4:33 PM QUALITY CONTROL TECH [facility] Immature Granulocytes Absolute 0.06 0.00 - 0.10 10*3/uL 07/08/2024 4:33 PM QUALITY CONTROL TECH [facility] Blood BLOOD SPECIMEN / Unknown Venipuncture / Unknown 07/08/2024 3:51 PM QUALITY CONTROL TECH 07/08/2024 3:57 PM QUALITY CONTROL TECH us Carol Ann Lei PA-C EC HEMATOLOGY ORDERABLES F inal Result [facility] [address] [place] [address] * (ABNORMAL) D-DIMER (07/08/2024 3:51 PM QUALITY CONTROL TECH) D-Dimer 4.30(H) 0.22 - 0.50 mg/L 07/08/2024 4:33 PM QUALITY CONTROL TECH [facility] Blood BLOOD SPECIMEN / Unknown Venipuncture / Unknown 07/08/2024 3:51 PM QUALITY CONTROL TECH 07/08/2024 3:57 PM QUALITY CONTROL TECH Narrative [facility] - 07/08/2024 4:33 PM QUALITY CONTROL TECH Result is mg/L FEU (Fibrinogen Equivalent Units) D-Dimer is elevated in DVT,PE, and DIC, however, D-Dimer in NOT specific for DVT and PE and therefore, cannot be applied as a sole confirmatory marker. D-Dimer should be used as an aide in diagnosis. An [facility] laboratory study showed that the cutoff value of 0.5 mg/L FEU has a 100% negative predictive value us Carol Ann Lei PA-C EC HEMATOLOGY ORDERABLES F inal Result [address] [phone] * EKG 12-LEAD (07/08/2024 3:44 PM QUALITY CONTROL TECH) [facility] Ventricular Rate 82 BPM RMCMUSE Atrial Rate 82 BPM RMCMUSE P-R Interval 152 ms RMCMUSE QRS Duration 104 ms RMCMUSE QT 350 ms RM[facility]USE QTc 408 ms RMCMUSE P [place] 39 degrees RMCMUSE R [place] 15 degrees RMCMUSE T [place] 47 degrees RMCMUSE 07/08/2024 3:44 PM QUALITY CONTROL TECH 07/11/2024 2:03 PM QUALITY CONTROL TECH Narrative [facility]CMUSE - 07/11/2024 2:03 PM QUALITY CONTROL TECH Confirming Manuel Madrid Normal sinus rhythm Normal ECG When compared with ECG of 19-APR-2024 11:11, No significant change was found Procedure Note Santosh Madrid MD - 07/11/2024 Confirming Manuel Madrid Normal sinus rhythm Normal ECG When compared with ECG of 19-APR-2024 11:11, No significant change was found us Danica Mckee MD IP ECG ORDERABLES Final Res ult RMCMUSE from Last 3 Months Insurance [facility] Care Teams Senior Network Security Engineer Relationship Specialty Start Date End Date Choice, No Pcp-Patient PCP - General 04/19/24
--- OUTSIDE RECORDS SUMMARY | 2024-09-28 19:50 | XMS_ITS | Clinical Summary ---
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 Pulse 69 08/22/2023 7:31 AM UTILITY MAINTENANCE WORKER Temperature 36.6 C (97.9 F) 08/22/2023 7:31 AM UTILITY MAINTENANCE WORKER Respiratory Rate 18 08/22/2023 7:31 AM UTILITY MAINTENANCE WORKER Oxygen Saturation 98% 08/22/2023 7:31 AM UTILITY MAINTENANCE WORKER Inhaled Oxygen Concentration - - Weight 88.1 kg (194 lb 3.2 oz) 08/21/2023 7:52 A M UTILITY MAINTENANCE WORKER Height 180.3 cm (5' 10.98) 08/18/2023 3:[address] Body Mass Index 27.1 08/18/2023 3:21 PM UTILITY MAINTENANCE WORKER Plan of Treatment Health Maintenance Due Date [...] to complete this topic Insurance HOMELESS 08/14/2023 [facility] [id number] [place] SAY [place] [id number] HOMELESS 08/14/2023 SAY Rivera [id number] [facility] Advance Directives * Full Code (Latest Code Status on File) Date Activated Date Inactivated Comments 08/14/2023 4:34 AM 08/22/2023 10:23 AM Care Teams Paper Tube Cutter Relationship Specialty Start Date End Date No Primary/Referring, Phy PCP - General 08/14/23
[2024-09-28] MEDS: cephALEXin 500 MG CAPSULE PO (20:25)
== END 2024-09-28 20:36 | disposition home or self-care (01) ==
PROVIDERS: Emergency Provider Emergency Medicine
DX: M25.531 Pain in right wrist (principal); M79.89 Other specified soft tissue disorders
CPT/HCPCS: 96372; 99283; 99284; A9270; J1171